=== PATIENT | female | born 1985 | race African-American/Black ===

== ENCOUNTER 2019-06-01 07:41 | Inpatient (IN) ==
[2019-06-01] MEDS ORDERED: ONDANSETRON 4 MG/2 ML VIAL IV STA (08:07)
[2019-06-01 08:37] LABS: Apearance,Urine CLOUDY (Clear); Bacteria,Urine Many /HPF (Few); Bilirubin,Urine Negative (Negative); Blood, Urine Large mg/dL (Negative); Glucose,Urine (UA) Negative (Negative); Ketones,Urine 5 mg/dL (Negative); Mucus,Urine Occasional /LPF (Occasional); Nitrite,Urine Positive (Negative); Protein,Urine 100 MG/DL; RBC,Urine 35 /HPF (0-4); Urine Color Yellow (Yellow); Urine Urobilinogen < 2.0 EU/DL (0.2-1.0); WBC,Urine 174 /HPF (0-6)
[2019-06-01 08:38] LABS: Basophils % 0.3 % (0.0-0.8); Eosinophils % 0.2 % (0.00-10.9); Hematocrit 34.8 VOL% (35.7-47.0); Hemoglobin 11.8 GM/DL (12.0-16.0); Immature Granulocytes % 0.5 %; Immature Granulocytes Absolute 0.05 #; Lymphocytes % 9.1 % (21.3-54.2); Mean Corpuscular HGB Conc 33.9 GM/DL (32-36); Mean Corpuscular Volume 101.2 FL (87-102); Mean Platelet Volume 9.2 FL (9.6-12.0); Monocytes % 9.2 % (1.7-12.7); Neutrophils % 80.7 % (38.7-73.9); Platelet Count 246 T/CUMM (130-400); Red Blood Count 3.44 MC/CUMM (3.8-5.5); Red Cell Distribution Width 13.2 % (9.3-17.3)
[2019-06-01 08:58] LABS: Albumin 3.2 G/DL (3.4-5.0); Bilirubin,Total 0.9 MG/DL (0.2-1.0); Calcium 8.7 MG/DL (8.5-10.1); Osmolality,Calculated 272.7 MOS/KG (273-304); Total Protein 7.7 G/DL (6.4-8.3)
[2019-06-01] MEDS ORDERED: cefTRIAXone 1,000 MG in SODIUM CHLORIDE 0.9% 100 ML IV STA (09:07)
[2019-06-01] MEDS ORDERED: MORPHINE 4 MG/1 ML VIAL IV PRN (10:21)
[2019-06-01] MEDS ORDERED: ONDANSETRON 4 MG/2 ML VIAL IV PRN (10:21)
[2019-06-01] MEDS ORDERED: NICOTINE 21 MG/24 HR PATCH TRANSDERM PRN (10:21)
[2019-06-01] MEDS: ENOXAPARIN 40 MG/0.4 ML SYRINGE SUBCUT SCH (11:05)
[2019-06-01] MEDS: SODIUM CHLORIDE 0.9% 1,000 ML IV SCH (11:05)
[2019-06-01] MEDS ORDERED: INFLUENZA VIRUS VACCINE 0.5 ML SYRINGE IM ONE (14:33)
[2019-06-01] MEDS: ACETAMINOPHEN 500 MG TABLET PO PRN (16:45)
[2019-06-02] MEDS: ACETAMINOPHEN 500 MG TABLET PO PRN (02:04)
[2019-06-02] MEDS: SODIUM CHLORIDE 0.9% 1,000 ML IV SCH ×3 (02:06→21:34)
[2019-06-02 07:07] LABS: Basophils % 0.2 % (0.0-0.8); Eosinophils % 0.1 % (0.00-10.9); Hematocrit 32.5 VOL% (35.7-47.0); Hemoglobin 10.9 GM/DL (12.0-16.0); Immature Granulocytes % 0.7 %; Immature Granulocytes Absolute 0.06 #; Lymphocytes # 0.9 10*3/uL (1.4-4.0); Lymphocytes % 10.5 % (21.3-54.2); Mean Corpuscular HGB Conc 33.5 GM/DL (32-36); Mean Corpuscular Volume 100.9 FL (87-102); Mean Platelet Volume 9.6 FL (9.6-12.0); Neutrophils % 80.5 % (38.7-73.9); Platelet Count 220 T/CUMM (130-400); Red Blood Count 3.22 MC/CUMM (3.8-5.5); Red Cell Distribution Width 13.1 % (9.3-17.3); White Blood Count 8.2 T/CUMM (4-12)
[2019-06-02 07:36] LABS: Anisocytosis 1+; Band Neutrophils 6 % (0-10); Hypersegmented Neutrophil Few; Lymphocytes 7 % (20-55); Macrocytosis 1+; Platelet Estimate Normal; Segmented Neutrophils 79 % (50-85); Total Cells Counted 100
[2019-06-02 07:37] LABS: Calcium 8.4 MG/DL (8.5-10.1); Osmolality,Calculated 277.3 MOS/KG (273-304); Risk Ratio 3.44; VLDL CHOLESTEROL 12.2 MG/DL
[2019-06-02] MEDS: PANTOPRAZOLE 40 MG TABLET PO SCH (10:08)
[2019-06-02] MEDS: cefTRIAXone 1,000 MG in SYRINGE 1 EACH IV SCH (10:08)
[2019-06-02] MEDS: ENOXAPARIN 40 MG/0.4 ML SYRINGE SUBCUT SCH (10:08)
[2019-06-02] MEDS: POTASSIUM CHLORIDE 20 MEQ TABLET PO PRN (10:08)
[2019-06-03] MEDS: SODIUM CHLORIDE 0.9% 1,000 ML IV SCH (05:47)
[2019-06-03 05:58] LABS: Basophils % 0.2 % (0.0-0.8); Eosinophils # 0.1 10*3/uL (0.0-0.87); Eosinophils % 1.6 % (0.00-10.9); Hematocrit 28.2 VOL% (35.7-47.0); Hemoglobin 9.6 GM/DL (12.0-16.0); Immature Granulocytes % 0.5 %; Immature Granulocytes Absolute 0.03 #; Lymphocytes # 0.9 10*3/uL (1.4-4.0); Lymphocytes % 16.5 % (21.3-54.2); Mean Corpuscular Volume 99.6 FL (87-102); Mean Platelet Volume 9.6 FL (9.6-12.0); Monocytes % 8.9 % (1.7-12.7); Neutrophils % 72.3 % (38.7-73.9); Platelet Count 191 T/CUMM (130-400); Red Blood Count 2.83 MC/CUMM (3.8-5.5); White Blood Count 5.5 T/CUMM (4-12)
[2019-06-03 06:24] LABS: Anisocytosis 1+; Macrocytosis 1+; Ovalocytes Slight
[2019-06-03 06:25] LABS: Platelet Estimate Adequate
[2019-06-03 06:31] LABS: Osmolality,Calculated 273.5 MOS/KG (273-304)
[2019-06-03] MEDS: PANTOPRAZOLE 40 MG TABLET PO SCH (08:21)
[2019-06-03] MEDS: POTASSIUM CHLORIDE 20 MEQ TABLET PO PRN ×3 (08:21→12:21)
[2019-06-03] MEDS: cefTRIAXone 1,000 MG in SYRINGE 1 EACH IV SCH (08:21)
[2019-06-03] MEDS: ENOXAPARIN 40 MG/0.4 ML SYRINGE SUBCUT SCH ×2 (08:22→09:29)
[2019-06-03 11:50] VITALS: BP 112/64
== END 2019-06-03 12:45 | disposition home or self-care (01) | DRG 690 ==
LOC: N.ED 07:41 → N.EDINP 10:21 → N.5E 13:30
PROVIDERS: ADMIT Internal Medicine; ATTEND Internal Medicine